=== PATIENT | male | born 1955 | race Caucasian/White ===

== ENCOUNTER → 2018-08-02 18:13 | Outpatient (REF) | payer OTHER, SELFPAY ==
[2018-08-02 19:16] LABS: Alanine Aminotransferase 37 IU/L (21-72); Albumin 4.3 g/dL (3.5-5.0); Albumin Globulin Ratio 1.7 (1.0-2.8); Alkaline Phosphatase 73 U/L (38-126); Aspartate Aminotransferase 18 IU/L (17-59); Blood Urea Nitrogen 22 mg/dL (9-20); Calcium 9.3 mg/dL (8.4-10.2); Carbon Dioxide 26 mmol/L (22-32); Chloride 103 mmol/L (98-107); Cholesterol 166 mg/dL (140-199); Estimated Glomerular Filt Rate > 60.0 mL/min (>60); Globulin 2.5 g/dL (1.7-4.1); Glucose 247 mg/dL (80-110); HDL Cholesterol 58 mg/dL (40-60); HEMOLYSIS < 15 (0-50); LDL Cholesterol Calculated 92 mg/dL (<100); Potassium 3.6 mmol/L (3.4-5.1); Sodium 139 mmol/L (137-145); Total Protein 6.8 g/dL (6.3-8.2); Triglycerides 80 mg/dL (35-150)
[2018-08-02 19:27] LABS: Basophils Absolute Auto 0 /uL (0-100); Basophils Percent Auto 0.8 % (0-2); Eosinophils Absolute Auto 600 /uL (0-450); Eosinophils Percent Auto 11.7 % (2-4); Hematocrit 42.4 % (41-53); Hemoglobin 14.1 g/dL (13.5-17.5); Lymphocytes Absolute Auto 900 /uL (1100-4500); Lymphocytes Percent Auto 17.1 % (25-40); Mean Corpuscular HGB Conc 33.2 % (30-36); Mean Corpuscular Hemoglobin 31.6 PG (26-34); Mean Corpuscular Volume 95.1 fL (80-100); Monocytes Absolute Auto 600 /uL (0-900); Monocytes Percent Auto 12.7 % (3-14); Neutrophils Absolute Auto 2900 /uL (1500-7000); Neutrophils Percent Auto 57.7 % (50-75); Platelet Count 204 X10^3/uL (150-400); Red Blood Cell Count 4.45 X10^6/uL (4.5-5.9); Red Cell Distribution Width 13.7 % (11.6-14.8)
[2018-08-02 19:40] LABS: Hemoglobin A1C% w Est Avg Glu 9.4 % (4.0-6.0)
[2018-08-02 20:07] LABS: Thyroid Stimulating Hormone 2.78 uIU/mL (0.47-4.68)
[2018-08-02 20:27] LABS: Add Manual Diff / Slide Review SLIDE REVIEW
[2018-08-02 20:28] LABS: RBC Morphology Normal Morphology
[2018-08-04 10:50] LABS: Vitamin B12 380 pg/mL (239-931)
[2018-08-06 21:35] LABS: Estrogen 180.3 pg/mL (60-190)
== END ==
LOC: LAB 18:13
PROVIDERS: Family Provider Specialist; PCP Family Medicine Geriatric Medicine; Visit Provider Family Medicine Geriatric Medicine
DX: R53.82 Chronic fatigue, unspecified (principal); E10.9 Type 1 diabetes mellitus without complications; N62 Hypertrophy of breast; Z13.29 Encounter for screening for other suspected endocrine disorder
CPT/HCPCS: 36415; 80053; 80061; 82607; 82672; 83036; 84403; 84443; 85025

== ENCOUNTER → 2021-01-03 07:46 | Outpatient (CLI) | payer MEDICARE, OTHER, SELFPAY ==
--- NOTE | 2021-01-03 | DI.US.S_ITS ---
PROCEDURE: US PERIPH VENOUS LOW EXTREM RT INDICATIONS: EDEMA TECHNIQUE: Real-time imaging, as well as color and pulse Doppler interrogation, were performed of the lower extremity deep veins from the inguinal ligament to the popliteal fossa. COMPARISON: None. FINDINGS: The common femoral, femoral and popliteal veins are normally compressible, and free of intraluminal thrombus. Color and pulse Doppler demonstrate normal phasic intraluminal flow. There is normal augmentation response to distal compression maneuver. IMPRESSION: No sonographic evidence of DVT. Dictated by: Topher Weathers M.D. on 01/03/2021 at 8:39 Approved by: Topher Weathers M.D. on 01/03/2021 at 8:39
--- NOTE | 2021-01-03 | DI.US.S_ITS ---
PROCEDURE: US ABDOMEN LIMITED INDICATIONS: RIGHT LOWER QUADRANT PAIN TECHNIQUE: Real-time scanning was performed of the abdominal and retroperitoneal organs, with image documentation. COMPARISON: [facility], CT, CHEST/ABD/PEL WITH CONTRAST, 08/10/2017, 14:21. FINDINGS: Images of the right lower quadrant in the area of palpable abnormality and pain were performed. In the area of palpable abnormality visualization was limited due to bowel gas. In the area medial to the area of palpable abnormality there is a possible bilobed mass with each lobe measuring approximately 4 cm. This could be non peristalsing bowel however. CT is recommended. The right kidney demonstrates mild to moderate hydronephrosis versus pelviectasis.. IMPRESSION: 1. Limited visualization due to overlying bowel gas. 2. 2 solid areas which are bilobed each lobe measuring approximately 4 cm are identified, but could be simply non peristalsing bowel. 3. Recommend CT of the abdomen and pelvis. 4. The right kidney has moderate hydronephrosis versus pelviectasis. This also could be further evaluated with CT of the abdomen and pelvis. Dictated by: Amarjit Garland M.D. on 01/03/2021 at 8:47 Approved by: Amarjit Garland M.D. on 01/03/2021 at 8:52
== END ==
PROVIDERS: Family Provider Specialist; PCP Family Medicine Geriatric Medicine; Referring Provider Physician Assistant Medical; Visit Provider Physician Assistant Medical
DX: R60.9 Edema, unspecified (principal); R10.31 Right lower quadrant pain
CPT/HCPCS: 76700; 76705; 93971